=== PATIENT | female | born 1965 | race African-American/Black ===

== ENCOUNTER → 2021-12-12 | Outpatient (CLI) | payer OTHER ==
[~2021-12-12] MED LIST: ACET-66 PO; NAPR-1197 PO
== END | disposition home or self-care (01) ==
LOC: RADPV 13:10
PROVIDERS: ATTEND Legal Medicine
DX: M25.472 Effusion, left ankle (principal); M77.32 Calcaneal spur, left foot; I82.403 Acute embolism and thrombosis of unspecified deep veins of lower extremity, bilateral; M19.072 Primary osteoarthritis, left ankle and foot; I21.9 Acute myocardial infarction, unspecified
CPT/HCPCS: 73521; 93926; 93971; 73562-TC; 73610-TC

== ENCOUNTER → 2022-02-08 | Outpatient (CLI) | payer OTHER | END | disposition home or self-care (01) | LOC: RADMN 13:58 | PROVIDERS: ATTEND Legal Medicine | DX: M25.851 Other specified joint disorders, right hip (principal); M25.551 Pain in right hip | CPT/HCPCS: 72195 ==